=== PATIENT | female | born 1990 | race Caucasian/White ===

== ENCOUNTER 2020-12-09 13:35 | Emergency (ER) | payer OTHER, SELFPAY ==
[2020-12-09 13:56] VITALS: BP 157/95; PULSE 86; RESP 16; TEMP 36.6; O2SAT 99; BMI 37.1
[2020-12-09 14:27] LABS: COVID19 -Nasal RAPID Negative (Negative)
--- NOTE | 2020-12-09 15:33 | PC.NURSE ---
called for patient in all lobbies and outside ER enterance. No sign of patient.
== END 2020-12-09 15:33 | disposition admitted as inpatient to this hospital (09) ==
PROVIDERS: Emergency Provider Emergency Medicine
DX: R51.9 Headache, unspecified (principal); Z20.822 Contact with and (suspected) exposure to COVID-19
CPT/HCPCS: 87635; 99281; C9803

== ENCOUNTER 2023-03-29 21:44 | Emergency (ER) | payer OTHER, MEDICAID, SELFPAY ==
[2023-03-29 21:55] VITALS: BP 169/78; PULSE 92; RESP 18; TEMP 37.9; O2SAT 100; BMI 37.1
--- NOTE | 2023-03-29 21:56 | ED.GENADULT ---
HPI - General Adult General Chief complaint: Upper Respiratory Symptoms Stated complaint: fever Time Seen by Provider: 03/29/23 21:56 History of Present Illness HPI narrative: 32-year-old woman who noted sore throat starting this morning radiating up into her ears, minor headache, minor rhinorrhea, temperatures into the 100 but not significantly higher range. No cough. She states that she is had prior episodes of ear infections has never had strep throat but is fairly sure that is what she is dealing with currently. She is been in her usual state of health until this morning when the sore throat started. Related Data Previous Rx's Medication Instructions Recorded amoxicillin 500 mg capsule 500 mg PO TID #21 caps 03/29/23 amoxicillin 500 mg capsule 500 mg PO TID #21 caps 03/29/23 Allergies Allergy/AdvReac Type Severity Reaction Status Date / Time hydrocodone [From Vicodin] AdvReac Mild Nausea Verified 12/09/20 14:02 Review of Systems Review of Systems Narrative: Pertinent positive and negative findings as per HPI Patient History Social History Smoking Status: Current every day smoker Smoking Status: Current every day smoker alcohol intake frequency: a few times a week Substance Use Type: marijuana Exam Initial Vital Signs Initial Vital Signs: General: Slightly pale with circles under eyes, appears to have a sore throat but Able to give a complete and coherent history. Well-nourished well-developed HEENT: Moist mucous membranes, normal sclera with reactive pupils, moderate time tonsillar hypertrophy with purulent discharge, cervical adenopathy no evidence of peritonsillar abscess Respiratory: Lungs are clear to auscultation, no wheezing no rales no rhonchi. Full and symmetrical air movement Cardiac: Regular rate and rhythm no murmurs no bruits Abdomen: Soft, nontender, good bowel tones, no flank pain Skin: Warm and dry, no rashes Neurologic: Grossly neurologically intact with no obvious asymmetries or abnormalities Extremities: No trauma, well perfused Psych: Cooperative, appropriate insight and affect Course Orders Ordered: ED Orders 03/29/23 21:55 Strep Grp A by PCR Rapid Stat Medical Decision Making [facility] Narrative Medical decision making narrative: CC: Sore throat starting this morning Complicating co-morbidities: Prior episodes of otitis, no prior episodes of strep throat, no friends with current viral symptoms Data collected from: patient Differential considered: Strep throat, mononucleosis, other viral pharyngitis Exam documented above, pertinent findings include: Swollen tonsils with pustular exudate, no cervical adenopathy and no abnormalities to tympanic membranes bilaterally Lab Test results independently reviewed as above. Pertinent findings: Positive strep Treatments: Amoxicillin orally Discussion: 32-year-old woman with 12 hours of a sore throat, rapid strep is positive. Symptoms are entirely consistent with acute strep throat no evidence of otitis media or other systemic concerns. Prescription for amoxicillin for 7 days will be given. Discussed pain control, anticipated course of resolution and reasons to return to the emergency department. Questions were answered and she is safe for discharge Discharge Plan Departure Patient Disposition: Home Clinical Impression: Strep throat Instructions: DI for Strep Throat Activity Restrictions/Additional Instructions: Thank you for coming in today You do have strep throat. Fortunately the remainder of your exam is relatively benign and I am not seeing any indication to do additional blood work or reason to admit you in the hospital. I did give you the 1st dose of amoxicillin in the emergency department. 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 If you find that you are not getting better after 3 days of antibiotics or actively getting worse, it would be appropriate to return to the ER Using 400 mg of ibuprofen (2 [id number] pills) and 1 Tylenol every 6 hours can be very helpful in controlling pain. Prescriptions: New amoxicillin 500 mg capsule 500 mg PO TID Qty: 21 0RF amoxicillin 500 mg capsule 500 mg PO TID Qty: 21 0RF Stand Alone Forms: Patient Portal/API
[2023-03-29] MEDS: ACETAMINOPHEN 325 MG TABLET 975 MG PO (22:08)
[2023-03-29 22:09] LABS: Strep Grp A by PCR Rapid Positive (Negative)
[2023-03-29] MEDS: IBUPROFEN 400 MG TABLET PO (22:10)
[2023-03-29] MEDS: AMOXICILLIN 250 MG CAPSULE 500 MG PO (22:23)
== END 2023-03-29 22:34 | disposition home or self-care (01) ==
PROVIDERS: Emergency Provider Emergency Medicine
DX: J02.0 Streptococcal pharyngitis (principal); F17.200 Nicotine dependence, unspecified, uncomplicated
CPT/HCPCS: 87651; 99283

== ENCOUNTER 2023-08-05 12:26 | Emergency (ER) | payer OTHER, MEDICAID, SELFPAY ==
[2023-08-05 12:40] VITALS: BP 181/81; PULSE 65; RESP 18; TEMP 36.4; O2SAT 100; BMI 35.5
[2023-08-05 12:54] VITALS: PULSE 69; O2SAT 100
[2023-08-05 13:00] VITALS: PULSE 66; O2SAT 100
[2023-08-05 13:08] VITALS: BP 141/80; PULSE 70; O2SAT 100
--- NOTE | 2023-08-05 13:15 | ED.ABDPAIN ---
HPI - Abdominal Pain <Jose Petit MD - Last Filed: 08/05/23 15:12> General Chief Complaint: Abdominal Pain Stated Complaint: appendix pain T-0 Time Seen by Provider: 08/05/23 12:59 Source: patient Mode of arrival: Ambulatory History of Present Illness HPI narrative: 32-year-old female complains of acute onset right upper quadrant abdominal discomfort, at rest 1 hour ago, persisting, with associated nausea but no emesis, no recent black or red stools are loose stools, last bowel movement yesterday was unremarkable. She does not have any known gallbladder problems, no prior kidney stones, no prior ovarian cysts, no similar symptoms like this in the past. She has not tried any medications yet. The symptoms are not any better with changes of position, right lateral, upright, supine. No vaginal bleeding. No associated pain in the legs. No known aortic problems. No injury trauma or new activities. She does not feel feverish. She denies any cough, shortness of breath, chest discomfort. Related Data Previous Rx's Medication Instructions Recorded cephalexin 500 mg capsule 500 mg PO BID 7 days #14 caps 08/05/23 hydrocodone 5 mg-acetaminophen 325 1 tab PO Q6H PRN pain #10 tabs 08/05/23 mg tablet ondansetron 4 mg disintegrating 4 mg PO Q8H PRN nausea and 08/05/23 tablet vomiting #10 tabs Allergies Allergy/AdvReac Type Severity Reaction Status Date / Time hydrocodone [From Vicodin] AdvReac Mild Nausea Verified 08/05/23 13:26 Review of Systems <Jose Petit MD - Last Filed: 08/05/23 15:12> Constitutional Constitutional: Reports as per HPI Patient History <Jose Petit MD - Last Filed: 08/05/23 15:12> Social History Smoking Status: Current every day smoker Smoking Status: Current every day smoker alcohol intake frequency: a few times a week Substance Use Type: marijuana Exam <Jose Petit MD - Last Filed: 08/05/23 15:12> Initial Vital Signs Initial Vital Signs: Vital Signs Temperature 97.5 F L 08/05/23 12:40 Pulse Rate 65 08/05/23 12:40 Respiratory Rate 18 08/05/23 12:40 Blood Pressure 181/81 H 08/05/23 12:40 Pulse Oximetry 100 08/05/23 12:40 Oxygen Delivery Method Room Air 08/05/23 12:40 Const Other: Uncomfortable appearing, on right lateral decubitus position of comfort HENMI Head: normal to inspection Eyes General: Yes appearance normal, both eyes and all related structures Neck Neck: normal visual inspection Chest Chest: normal inspection of the chest Resp Effort & Inspection: normal respiratory effort Auscultation: clear to auscultation bilaterally Cardio Rate: tachycardic GI Palpation: tender (Some tenderness and right upper quadrant, not particularly worse with insp) Back/Spine/Pelvis Back: normal to inspection and No CVA tenderness Skin General: no rashes or lesions noted Neuro General: patient alert Cranial Nerves: CN's II-XI intact bilaterally Motor: no movement abnormalities noted Extrem General: normal to inspection Psych Appearance: grossly normal <Cintia Adams DO - Last Filed: 08/05/23 18:16> Initial Vital Signs Initial Vital Signs: Vital Signs Temperature 97.5 F L 08/05/23 12:40 Pulse Rate 65 08/05/23 12:40 Respiratory Rate 18 08/05/23 12:40 Blood Pressure 181/81 H 08/05/23 12:40 Pulse Oximetry 100 08/05/23 12:40 Oxygen Delivery Method Room Air 08/05/23 12:40 Course <Jose Petit MD - Last Filed: 08/05/23 15:12> Course Additional Information: IV Toradol, IV Zofran, urinalysis still pending. Ultrasound right upper quadrant abdominal study showed unremarkable gallbladder, no presence of stones, no pericholecystic fluid or gallbladder wall thickening described by his son no tech prelim verbal report, who did incidentally comment on dilated right sided ureter. Will order CT abdomen and pelvis noncontrast study. Signed out to Dr. Adams Orders Ordered: ED Orders 08/05/23 12:46 EKG-12 Lead Stat 08/05/23 13:22 US abdomen limited Stat 08/05/23 13:30 Complete Blood Count AUTO DIFF Stat Comprehensive Metabolic Panel Stat Lactate (Lactic Acid) Stat Lipase Stat Test Serum,Qual Stat 08/05/23 15:03 CT abdomen pelvis wo con Stat Ondansetron HCl (Ondansetron 4 Mg Odt) 4 mg PO NOW PRN PRN Reason: Nausea And Vomiting Ondansetron HCl (Ondansetron 4 Mg/2 Ml Inj) 4 mg IV NOW PRN PRN Reason: Nausea And Vomiting Last Admin: 08/05/23 14:31 Dose: 4 mg Documented By: KYLEE Ondansetron HCl (Ondansetron 4 Mg/2 Ml Inj) 4 mg IV Q4HR PRN PRN Reason: Nausea And Vomiting Discontinued Medications Hydromorphone HCl (Hydromorphone 0.5 Mg Inj) 0.5 mg IV NOW ONE Stop: 08/05/23 14:17 Last Admin: 08/05/23 14:31 Dose: 0.5 mg Documented By: MPO Hydromorphone HCl (Hydromorphone 0.5 Mg Inj) 0.5 mg IV NOW ONE Stop: 08/05/23 16:36 Last Admin: 08/05/23 17:01 Dose: 0.5 mg Documented By: MPO Sodium Chloride (Normal Saline 0.9%) 1,000 mls @ 1,000 mls/hr IV BOLUS ONE Stop: 08/05/23 15:19 Last Infusion: 08/05/23 15:33 Dose: Infused Documented By: Admin: 08/05/23 14:32 Dose: 1,000 mls/hr Documented By: MPO Sodium Chloride (Normal Saline 0.9%) 1,000 mls @ 1,000 mls/hr IV BOLUS ONE Stop: 08/05/23 16:33 Last Infusion: 08/05/23 16:32 Dose: Infused Documented By: Admin: 08/05/23 15:35 Dose: 1,000 mls/hr Documented By: MPO Sodium Chloride (Normal Saline 0.9%) 1,000 mls @ 1,000 mls/hr IV BOLUS ONE Stop: 08/05/23 17:34 Last Admin: 08/05/23 17:01 Dose: 1,000 mls/hr Documented By: MPO Ketorolac Tromethamine (Ketorolac 30 Mg/Ml Vial) 30 mg IV NOW ONE Stop: 08/05/23 14:18 Last Admin: 08/05/23 14:31 Dose: 30 mg Documented By: MPO Vital Signs Vital signs: Vital Signs - 8 hr 08/05/23 12:40 08/05/23 12:54 08/05/23 13:00 Temperature 97.5 F L Pulse Rate 65 69 66 Respiratory Rate 18 Blood Pressure 181/81 H Pulse Oximetry 100 100 100 Oxygen Delivery Method Room Air 08/05/23 13:08 08/05/23 13:08 08/05/23 17:32 Temperature 98 F Pulse Rate 70 73 Respiratory Rate 20 Blood Pressure 141/80 H 175/100 H Pulse Oximetry 100 100 Oxygen Delivery Method Room Air <Cintia Adams DO - Last Filed: 08/05/23 18:16> Orders Ordered: ED Orders 08/05/23 12:46 EKG-12 Lead Stat 08/05/23 13:22 US abdomen limited Stat 08/05/23 13:30 Complete Blood Count AUTO DIFF Stat Comprehensive Metabolic Panel Stat Lactate (Lactic Acid) Stat Lipase Stat Test Serum,Qual Stat 08/05/23 15:03 CT abdomen pelvis wo con Stat Ondansetron HCl (Ondansetron 4 Mg Odt) 4 mg PO NOW PRN PRN Reason: Nausea And Vomiting Ondansetron HCl (Ondansetron 4 Mg/2 Ml Inj) 4 mg IV NOW PRN PRN Reason: Nausea And Vomiting Last Admin: 08/05/23 14:31 Dose: 4 mg Documented By: KYLEE Ondansetron HCl (Ondansetron 4 Mg/2 Ml Inj) 4 mg IV Q4HR PRN PRN Reason: Nausea And Vomiting Discontinued Medications Hydromorphone HCl (Hydromorphone 0.5 Mg Inj) 0.5 mg IV NOW ONE Stop: 08/05/23 14:17 Last Admin: 08/05/23 14:31 Dose: 0.5 mg Documented By: MPO Hydromorphone HCl (Hydromorphone 0.5 Mg Inj) 0.5 mg IV NOW ONE Stop: 08/05/23 16:36 Last Admin: 08/05/23 17:01 Dose: 0.5 mg Documented By: MPO Sodium Chloride (Normal Saline 0.9%) 1,000 mls @ 1,000 mls/hr IV BOLUS ONE Stop: 08/05/23 15:19 Last Infusion: 08/05/23 15:33 Dose: Infused Documented By: Admin: 08/05/23 14:32 Dose: 1,000 mls/hr Documented By: MPO Sodium Chloride (Normal Saline 0.9%) 1,000 mls @ 1,000 mls/hr IV BOLUS ONE Stop: 08/05/23 16:33 Last Infusion: 08/05/23 16:32 Dose: Infused Documented By: Admin: 08/05/23 15:35 Dose: 1,000 mls/hr Documented By: KYLEE Sodium Chloride (Normal Saline 0.9%) 1,000 mls @ 1,000 mls/hr IV BOLUS ONE Stop: 08/05/23 17:34 Last Admin: 08/05/23 17:01 Dose: 1,000 mls/hr Documented By: KYLEE Ketorolac Tromethamine (Ketorolac 30 Mg/Ml Vial) 30 mg IV NOW ONE Stop: 08/05/23 14:18 Last Admin: 08/05/23 14:31 Dose: 30 mg Documented By: KYLEE Vital Signs Vital signs: Vital Signs - 8 hr 08/05/23 12:40 08/05/23 12:54 08/05/23 13:00 Temperature 97.5 F L Pulse Rate 65 69 66 Respiratory Rate 18 Blood Pressure 181/81 H Pulse Oximetry 100 100 100 Oxygen Delivery Method Room Air 08/05/23 13:08 08/05/23 13:08 08/05/23 17:32 Temperature 98 F Pulse Rate 70 73 Respiratory Rate 20 Blood Pressure 141/80 H 175/100 H Pulse Oximetry 100 100 Oxygen Delivery Method Room Air MDM - Abdominal Pain <Jose Petit MD - Last Filed: 08/05/23 15:12> Differential Diagnosis Differential diagnosis: Likely abdominal pain, acute appendicitis, calculus of kidney, diverticulitis, endometriosis, gastroenteritis, pancreatitis and other (Cholecystitis, biliary colic, ovarian cyst, PID, TOA) Lab Data Attestation: I reviewed the patient's lab results. 08/05/23 13:30 08/05/23 13:30 Labs: Lab Results 08/05/23 Range/Units 13:30 WBC 10.1 (4.5-11.0) X10^3/uL RBC 3.86 L (4.0-5.2) X10^6/uL Hgb 7.6 L (12.0-16.0) g/dL Hct 25.8 L (36-46) % MCV 66.9 L (80-100) fL MCH 19.7 L (26-34) PG MCHC 29.5 L (30-36) % RDW 21.5 H (11.6-14.8) % Plt Count 411 H (150-400) X10^3/uL Neut % (Auto) 74.4 (50-75) % Lymph % (Auto) 14.8 L (25-40) % [place] % (Auto) 8.7 (3-14) % Eos % (Auto) 1.1 L (2-4) % Baso % (Auto) 1.0 (0-2) % Neut # (Auto) 7500 H (4676-8096) /uL Lymph # (Auto) 1500 (6796-6379) /uL [place] # (Auto) 900 (0-900) /uL Eos # (Auto) 100 (0-450) /uL Baso # (Auto) 100 (0-100) /uL Plt Morphology Comment RBC Morphology See below Hypochromasia 1+ H Anisocytosis 2+ H Microcytosis 2+ H Sodium 139 (137-145) mmol/L Potassium 3.9 (3.4-5.1) mmol/L Chloride 108 H (98-107) mmol/L Carbon Dioxide 23 (22-32) mmol/L BUN 15 (7-17) mg/dL Creatinine 0.72 (0.52-1.04) mg/dL Estimated GFR > 60 (>60) mL/min BUN/Creatinine Ratio 20.8 (6-22) Glucose 105 H (70-100) mg/dL Lactate 0.9 (0.7-2.1) mmol/L Calcium 8.8 (8.4-10.2) mg/dL Total Bilirubin 0.5 (0.2-1.3) mg/dL AST 27 (14-36) IU/L ALT 17 (<35) IU/L Alkaline Phosphatase 90 (38-126) U/L Total Protein 7.4 (6.3-8.2) g/dL Albumin 4.0 (3.5-5.0) g/dL Globulin 3.4 (1.7-4.1) g/dL Albumin/Globulin Ratio 1.2 (1.0-2.8) Lipase 24 (23-300) U/L Serum , Qual Negative (Negative) <Cintia Adams DO - Last Filed: 08/05/23 18:16> Lab Data Labs: Lab Results 08/05/23 Range/Units 13:30 WBC 10.1 (4.5-11.0) X10^3/uL RBC 3.86 L (4.0-5.2) X10^6/uL Hgb 7.6 L (12.0-16.0) g/dL Hct 25.8 L (36-46) % MCV 66.9 L (80-100) fL MCH 19.7 L (26-34) PG MCHC 29.5 L (30-36) % RDW 21.5 H (11.6-14.8) % Plt Count 411 H (150-400) X10^3/uL Neut % (Auto) 74.4 (50-75) % Lymph % (Auto) 14.8 L (25-40) % [place] % (Auto) 8.7 (3-14) % Eos % (Auto) 1.1 L (2-4) % Baso % (Auto) 1.0 (0-2) % Neut # (Auto) 7500 H (9154-2594) /uL Lymph # (Auto) 1500 (7464-1781) /uL [place] # (Auto) 900 (0-900) /uL Eos # (Auto) 100 (0-450) /uL Baso # (Auto) 100 (0-100) /uL Plt Morphology Comment RBC Morphology See below Hypochromasia 1+ H Anisocytosis 2+ H Microcytosis 2+ H Sodium 139 (137-145) mmol/L Potassium 3.9 (3.4-5.1) mmol/L Chloride 108 H (98-107) mmol/L Carbon Dioxide 23 (22-32) mmol/L BUN 15 (7-17) mg/dL Creatinine 0.72 (0.52-1.04) mg/dL Estimated GFR > 60 (>60) mL/min BUN/Creatinine Ratio 20.8 (6-22) Glucose 105 H (70-100) mg/dL Lactate 0.9 (0.7-2.1) mmol/L Calcium 8.8 (8.4-10.2) mg/dL Total Bilirubin 0.5 (0.2-1.3) mg/dL AST 27 (14-36) IU/L ALT 17 (<35) IU/L Alkaline Phosphatase 90 (38-126) U/L Total Protein 7.4 (6.3-8.2) g/dL Albumin 4.0 (3.5-5.0) g/dL Globulin 3.4 (1.7-4.1) g/dL Albumin/Globulin Ratio 1.2 (1.0-2.8) Lipase 24 (23-300) U/L Serum , Qual Negative (Negative) Imaging Data US - abdomen: Radiologist's Impression: PROCEDURE: US ABDOMEN LIMITED INDICATIONS: RUQ abd pain TECHNIQUE: Real-time scanning was performed of the abdominal and retroperitoneal organs, with image documentation. COMPARISON: None. FINDINGS: Liver: Liver is normal in size and homogeneous in echotexture. Gallbladder: No gallstones. No wall thickening. No pericholecystic edema. Negative sonographic Haddad's sign. Biliary ducts: Intrahepatic bile ducts are non-dilated. Extrahepatic bile duct caliber measures 5 2 mm. Normal is 6-7 mm or less in diameter, or 10 mm or less post-cholecystectomy. Pancreas: Visualized portions of the pancreas are sonographically normal. Miscellaneous: No free abdominal fluid. The right kidney shows moderate hydronephrosis and the proximal visualized right ureter measures 9 mm in thickness. The urinary bladder appears empty. IMPRESSION: Moderate right-sided hydronephrosis, empty bladder, possible ureteral calculus on the right given prominence of the visualized proximal ureter. CT KUB is scheduled for accurate assessment for presence of urinary tract stone Dictated by: Mikie Major M.D. on 08/05/2023 at 14:27 CT scan - abdomen/pelvis: Radiologist's Impression: PROCEDURE: CT ABDOMEN PELVIS WO CON INDICATIONS: Right flank pain TECHNIQUE: Axial sections were acquired from the lung bases to the pubic symphysis. Coronal and sagittal reformats were performed. For radiation dose reduction, the following was used: automated exposure control, adjustment of mA and/or kV according to patient size. COMPARISON: None. FINDINGS: Image quality: Diagnostic. Lower Chest: No significant findings. URINARY: Right Kidney: No stones but there is moderate hydronephrosis. Right Ureter: Moderate hydroureter to the far distal margin of the right ureter where a 1 x 2 mm faint calcific seen. Left Kidney: No stones or hydronephrosis. Left Ureter: No hydroureter. Bladder: Normal wall thickness. No stones. ABDOMEN: Liver: No contour-deforming solid mass. Gallbladder: No radiopaque gallstones or wall thickening. Biliary ducts: No biliary dilation. Pancreas: No ductal dilation. Spleen: Size is within normal limits. Adrenal Glands: No adrenal nodules. Stomach and Bowel: Normal colonic caliber, without significant wall thickening. Peritoneum: No abnormal intraperitoneal fluid. No free air. Ventral Wall: No hernia. Abdominal Nodes: No enlarged retroperitoneal or mesenteric lymph nodes. Vessels: Aorta and inferior vena cava are normal in size. PELVIS: Pelvic Organs: Unremarkable. Pelvic Nodes: Unremarkable. Miscellaneous: No inguinal hernias are seen. Bones: Unremarkable. IMPRESSION: No evidence of appendicitis. Right-sided hydro nephrosis is moderate, with perinephric edema on the right and hydroureter extending inferiorly virtually to the bladder level where within the distal ureter a faintly visualized 1 x 2 mm calcification can be seen. A combination of obstruction and urinary tract infection conceivably could be present with this appearance. Dictated by: Mikie Major M.D. on 08/05/2023 at 17:04 MDM Narrative Medical decision making narrative: Dr. Adams-patient signed out to me by Dr. Petit I have seen evaluated patient myself. Patient 32-year-old female presents today with right upper quadrant pain radiating around to her front. It started 30 minutes prior to arrival. She received Dilaudid and Toradol for pain. Ultrasound was negative but did show right hydronephrosis. Blood work does show anemia with a hemoglobin of 7 MCV of 66 presumed iron deficient. She denies any heavy menstrual cycles. Patient's CT does show probable 1 x 2 mm stone. There was also concern for infection per CT It appears CT that patient's bladder is full however she is refusing to urinate he is on her 3rd bag of fluid. She wants to go home she understands the need urine from her to see if there is an infection she does not want to wait. Discharge Plan Departure Patient Disposition: Home Clinical Impression: Anemia, Kidney stones Instructions: Anemia, DI for Kidney Stones Activity Restrictions/Additional Instructions: *You have been diagnosed with kidney stone and anemia *What to do: At this time I strongly recommended that you wait until you urinated. I want to make sure that you can urinate, concern about an infection. I will put you on some antibiotics anyway. However if you have not urinated when you get home or before you go to bed do recommend that you come back to the ED You also found to be anemic you need to have your blood level rechecked with your primary care provider *Continue to take medications as directed Multi vitamin or iron supplements daily Keflex 500 mg twice a day for 7 days [place] 1 tablet every 6 hours for severe pain Motrin 600 mg every 6 hours for [id number] pain Zofran 4 mg every 8 hours for nausea or vomiting *Follow up with your primary care provider in 2-3 days or call [phone] *Return to ER if you should have inability to urinate increasing pain fever confusion or any new, worsening or concerning symptoms Prescriptions: New hydrocodone-acetaminophen 5-325 mg tablet 1 tab PO Q6H PRN (Reason: pain) Qty: 10 0RF cephalexin 500 mg capsule 500 mg PO BID 7 Days Qty: 14 0RF ondansetron 4 mg tablet,disintegrating 4 mg PO Q8H PRN (Reason: nausea and vomiting) Qty: 10 0RF Referrals: *Temp,ED* [Primary Care Provider] - Stand Alone Forms: Patient Portal/API
--- NOTE | 2023-08-05 13:22 | DI.US.S_ITS ---
PROCEDURE: US ABDOMEN LIMITED INDICATIONS: RUQ abd pain TECHNIQUE: Real-time scanning was performed of the abdominal and retroperitoneal organs, with image documentation. COMPARISON: None. FINDINGS: Liver: Liver is normal in size and homogeneous in echotexture. Gallbladder: No gallstones. No wall thickening. No pericholecystic edema. Negative sonographic Haddad's sign. Biliary ducts: Intrahepatic bile ducts are non-dilated. Extrahepatic bile duct caliber measures 5 2 mm. Normal is 6-7 mm or less in diameter, or 10 mm or less post-cholecystectomy. Pancreas: Visualized portions of the pancreas are sonographically normal. Miscellaneous: No free abdominal fluid. The right kidney shows moderate hydronephrosis and the proximal visualized right ureter measures 9 mm in thickness. The urinary bladder appears empty. IMPRESSION: Moderate right-sided hydronephrosis, empty bladder, possible ureteral calculus on the right given prominence of the visualized proximal ureter. CT KUB is scheduled for accurate assessment for presence of urinary tract stone Dictated by: Mikie Major M.D. on 08/05/2023 at 14:27 Approved by: Mikie Major M.D. on 08/05/2023 at 14:29
[2023-08-05 13:43] LABS: Add Manual Diff / Slide Review NO; Basophils Absolute Auto 100 /uL (0-100); Eosinophils Absolute Auto 100 /uL (0-450); Eosinophils Percent Auto 1.1 % (2-4); Hematocrit 25.8 % (36-46); Hemoglobin 7.6 g/dL (12.0-16.0); Lymphocytes Absolute Auto 1500 /uL (1100-4500); Lymphocytes Percent Auto 14.8 % (25-40); Mean Corpuscular HGB Conc 29.5 % (30-36); Mean Corpuscular Hemoglobin 19.7 PG (26-34); Mean Corpuscular Volume 66.9 fL (80-100); Monocytes Absolute Auto 900 /uL (0-900); Monocytes Percent Auto 8.7 % (3-14); Neutrophils Absolute Auto 7500 /uL (1500-7000); Neutrophils Percent Auto 74.4 % (50-75); Platelet Count 411 X10^3/uL (150-400); Red Blood Cell Count 3.86 X10^6/uL (4.0-5.2); Red Cell Distribution Width 21.5 % (11.6-14.8); White Blood Cell Count 10.1 X10^3/uL (4.5-11.0)
[2023-08-05 13:51] LABS: Alanine Aminotransferase 17 IU/L (<35); Albumin Globulin Ratio 1.2 (1.0-2.8); Alkaline Phosphatase 90 U/L (38-126); Aspartate Aminotransferase 27 IU/L (14-36); BUN Creatinine Ratio 20.8 (6-22); Bilirubin Total 0.5 mg/dL (0.2-1.3); Blood Urea Nitrogen 15 mg/dL (7-17); Calcium 8.8 mg/dL (8.4-10.2); Carbon Dioxide 23 mmol/L (22-32); Chloride 108 mmol/L (98-107); Estimated Glomerular Filt Rate > 60 mL/min (>60); Globulin 3.4 g/dL (1.7-4.1); Glucose 105 mg/dL (70-100); HEMOLYSIS < 15 (0-50); Lactate (Lactic Acid) 0.9 mmol/L (0.7-2.1); Lipase 24 U/L (23-300); Potassium 3.9 mmol/L (3.4-5.1); Sodium 139 mmol/L (137-145); Total Protein 7.4 g/dL (6.3-8.2)
[2023-08-05 14:11] LABS: Anisocytosis 2+
[2023-08-05 14:12] LABS: Microcytosis 2+
[2023-08-05 14:13] LABS: Hypochromasia 1+
[2023-08-05] MEDS: ONDANSETRON 4 MG/2 ML INJ IV (14:31)
[2023-08-05] MEDS: KETOROLAC 30 MG/ML VIAL IV (14:31)
[2023-08-05] MEDS: HYDROMORPHONE 0.5 MG INJ IV ×2 (14:31→17:01)
[2023-08-05] MEDS: SODIUM CHLORIDE 0.9% 1,000 ML 1000 ML IV ×3 (14:32→17:01)
--- NOTE | 2023-08-05 15:02 | PC.NURSE ---
Pt states that her pain has resolved.
--- NOTE | 2023-08-05 15:03 | DI.CT.S_ITS ---
PROCEDURE: CT ABDOMEN PELVIS WO CON INDICATIONS: Right flank pain TECHNIQUE: Axial sections were acquired from the lung bases to the pubic symphysis. Coronal and sagittal reformats were performed. For radiation dose reduction, the following was used: automated exposure control, adjustment of mA and/or kV according to patient size. COMPARISON: None. FINDINGS: Image quality: Diagnostic. Lower Chest: No significant findings. URINARY: Right Kidney: No stones but there is moderate hydronephrosis. Right Ureter: Moderate hydroureter to the far distal margin of the right ureter where a 1 x 2 mm faint calcific seen. Left Kidney: No stones or hydronephrosis. Left Ureter: No hydroureter. Bladder: Normal wall thickness. No stones. ABDOMEN: Liver: No contour-deforming solid mass. Gallbladder: No radiopaque gallstones or wall thickening. Biliary ducts: No biliary dilation. Pancreas: No ductal dilation. Spleen: Size is within normal limits. Adrenal Glands: No adrenal nodules. Stomach and Bowel: Normal colonic caliber, without significant wall thickening. Peritoneum: No abnormal intraperitoneal fluid. No free air. Ventral Wall: No hernia. Abdominal Nodes: No enlarged retroperitoneal or mesenteric lymph nodes. Vessels: Aorta and inferior vena cava are normal in size. PELVIS: Pelvic Organs: Unremarkable. Pelvic Nodes: Unremarkable. Miscellaneous: No inguinal hernias are seen. Bones: Unremarkable. IMPRESSION: No evidence of appendicitis. Right-sided hydro nephrosis is moderate, with perinephric edema on the right and hydroureter extending inferiorly virtually to the bladder level where within the distal ureter a faintly visualized 1 x 2 mm calcification can be seen. A combination of obstruction and urinary tract infection conceivably could be present with this appearance. Dictated by: Mikie Major M.D. on 08/05/2023 at 17:04 Approved by: Mikie Major M.D. on 08/05/2023 at 17:06
[2023-08-05 16:42] LABS: Pregnancy Test Serum,Qual Negative (Negative)
[2023-08-05 17:32] VITALS: BP 175/100; PULSE 73; RESP 20; TEMP 36.6; O2SAT 100
== END 2023-08-05 18:20 | disposition home or self-care (01) ==
PROVIDERS: Emergency Medicine; Emergency Provider Emergency Medicine
DX: N20.0 Calculus of kidney (principal); D64.9 Anemia, unspecified; R00.0 Tachycardia, unspecified
CPT/HCPCS: 36415; 74176; 76705; 80053; 83605; 83690; 84703; 85025; 96361; 96374; 96375; 96376; 99284; J1170; J1885; J2405